=== PATIENT | female | born 1995 | race Caucasian/White ===

== ENCOUNTER 2020-06-01 13:50 | Emergency (ER) | payer OTHER ==
[~2020-06-01] VITALS: Ht 167.6 cm; Wt 136.1 kg
[2020-06-01] MEDS ORDERED: Norco 5-325 Ta1 EACH PO (16:12)
[2020-06-01] MEDS ORDERED: CRUTCH2 XX (16:12)
== END 2020-06-01 16:30 | disposition home or self-care (01) ==
LOC: ER 13:50
DX: S82.52XA Displaced fracture of medial malleolus of left tibia, initial encounter for closed fracture (principal); S93.401A Sprain of unspecified ligament of right ankle, initial encounter; Z88.2 Allergy status to sulfonamides; Z91.011 Allergy to milk products; Z88.1 Allergy status to other antibiotic agents
CPT/HCPCS: 29515; 73610; 99283-25